=== PATIENT | male | born 1995 | race Hispanic/Latino ===

== ENCOUNTER 2023-07-06 08:17 | Emergency (ER) | payer OTHER ==
[~2023-07-06] VITALS: Ht 180.3 cm; Wt 108.9 kg
[2023-07-06 09:12] LABS: BASOPHILS # (AUTO) 0.04 K/uL (0.00-0.20); BASOPHILS % (AUTO) 0.4 % (0.0-5.0); EOSINOPHILS # (AUTO) 0.08 K/uL (0.00-0.70); EOSINOPHILS % (AUTO) 0.8 % (0.0-8.0); HEMATOCRIT 46.7 % (42-54); IMMATURE GRANULOCYTE ABSOLUTE 0.04 K/uL (0-1); LYMPHOCYTES % (AUTO) 10.2 % (21.0-51.0); MEAN CORPUSCULAR HEMOGLOBIN 29.1 pg (27.0-33.0); MEAN CORPUSCULAR VOLUME 80.9 fL (79-99); MONOCYTES # (AUTO) 0.4 K/uL (0.1-1.0); MONOCYTES % (AUTO) 3.5 % (3.0-13.0); NEUTROPHILS # (AUTO) 8.5 K/uL (1.8-7.7); NEUTROPHILS % (AUTO) 84.7 % (40.0-77.0); PLATELET COUNT (AUTO) 209 K/uL (130-400); RED BLOOD CELL COUNT(AUTO) 5.77 MIL/uL (4.50-6.20)
[2023-07-06 09:19] LABS: CARBON DIOXIDE 29 mmol/L (21-32); CHLORIDE 99 mmol/L (101-111); CREATININE 0.8 mg/dL (0.5-1.3); GLOMERULAR FILTR. RATE CALC 123 mL/min (>90); GLUCOSE,RANDOM 190 mg/dL (70-105); POTASSIUM 3.7 mmol/L (3.5-5.1); SODIUM SERUM 135 mmol/L (136-145); UREA NITROGEN, BLOOD 12 mg/dL (7-18)
[2023-07-06 09:23] LABS: ALANINE AMINOTRANSFERASE 27 U/L (12-78); ALBUMIN 4.2 g/dL (3.5-5.0); ASPARTATE AMINOTRANSFERASE 26 U/L (10-37); BILIRUBIN,TOTAL 1.1 mg/dL (0.2-1.0); TOTAL PROTEIN, SERUM 7.9 g/dL (6.0-8.3)
[2023-07-06] MEDS: LACTATED RINGERS 1000ML 1,000 ML IV ONE (09:28)
[2023-07-06] MEDS: FAMOTIDINE 20MG VIAL IV ONE (09:29)
[2023-07-06] MEDS: ONDANSETRON 4MG INJ IVP ONE (09:30)
[2023-07-06 09:34] LABS: APPEARANCE,URINE CLEAR (CLEAR); BILIRUBIN,URINE NEGATIVE (NEGATIVE); COLOR,URINE LIGHT-YELLOW (YELLOW); GLUCOSE, URINE (UA) NEGATIVE (NEGATIVE); KETONES,URINE >=80 mg/dL (NEGATIVE); LEUKOCYTE ESTERASE ,URINE NEGATIVE Leu/uL (NEGATIVE); NITRATE,URINE NEGATIVE (NEGATIVE); OCCULT BLOOD,URINE NEGATIVE (NEGATIVE); PH,URINE 8.5 (5.0-8.0); PROTEIN,URINE 70 mg/dL (NEGATIVE); UROBILINOGEN,URINE 0.2 mg/dL (0.2-1.0)
[2023-07-06 09:42] LABS: ADD UA MICROSCOPIC YES
[2023-07-06 09:54] LABS: ALCOHOL, BLOOD < 3 mg/dL (0-10)
[2023-07-06 10:24] LABS: RBC,URINE 0-1 /HPF (0-1); SQUAMOUS EPITHELIAL CELL,UR RARE /HPF (0-2); WBC,URINE 0-1 /HPF (0-1)
[2023-07-06] MEDS: DICYCLOMINE HCL 10 MG/5 ML ML PO ONE (11:31)
[2023-07-06] MEDS: MAG/ALUM/SIMETH 30 ML UDCUP PO ONE (11:31)
[2023-07-06] MEDS: LIDOCAINE HCL 2% VISCOUS 15 ML UDCUP PO ONE (11:31)
[2023-07-06] MEDS ORDERED: IOHEXOL-350 75 ML VIAL IV ONE (11:52)
[2023-07-06] MEDS ORDERED: IOHEXOL 350 MG/ML 100ML INFUS..BTL IV ONE (12:06)
[2023-07-06] MEDS ORDERED: FAMO20TA8 PO (13:36)
[2023-07-06] MEDS ORDERED: ONDA4TAB10 PO (13:36)
[2023-07-06 14:33] VITALS: BP 137/68; PULSE 78; RESP 18; O2SAT 98
== END 2023-07-06 14:38 | disposition home or self-care (01) ==
LOC: EDH 08:17
DX: R11.2 Nausea with vomiting, unspecified (principal); F10.10 Alcohol abuse, uncomplicated; F12.10 Cannabis abuse, uncomplicated; F14.10 Cocaine abuse, uncomplicated
CPT/HCPCS: 99285; 74177; 96374; 71045; 96361; 96375; 80053; 83690; 85025; 81001; 36415; J7120; J3490; J2405; Q9967